=== PATIENT | male | born 1990 | race African-American/Black ===

== ENCOUNTER 2019-01-06 00:27 | Emergency (ER) | payer OTHER ==
[~2019-01-06] VITALS: Ht 165.1 cm; Wt 90.7 kg
[2019-01-06] MEDS ORDERED: NOHOMEMEDICATIONS (00:34)
[2019-01-06 01:14] LABS: ABSOLUTE NEUTROPHILS 5.7 thou/uL (1.4-8.2); BASOPHILS 0.3 % (0.0-2.0); EOSINOPHILS 1.7 % (0.0-3.0); HEMATOCRIT 42.8 % (42.0-52.0); HEMOGLOBIN 14.3 gm/dL (14.0-18.0); LYMPHOCYTES 39.2 % (24.0-44.0); MCH 31.2 pg (26.0-34.0); MCHC 33.3 g/dL (28.0-37.0); MCV 93.7 fL (80.0-100.0); MONOCYTES 6.1 % (1.0-8.0); PLATELET COUNT 272 thou/uL (150-400); POLYS 52.7 % (36.0-66.0); RBC 4.57 mil/uL (4.50-6.00); RDW 13.6 % (10.5-14.5); WBC 10.8 thou/uL (4.0-11.0)
[2019-01-06 01:44] LABS: ANION GAP 9 mmol/L (7-16); BUN 9 mg/dL (7-18); CHLORIDE 103 mmol/L (98-107); CO2 25 mmol/L (21-32); CREATININE 0.9 mg/dL (0.7-1.3); GLUCOSE 96 mg/dL (74-106); SODIUM 137 mmol/L (136-145)
[2019-01-06 01:52] LABS: TROPONIN-I <0.06 ng/mL (<0.06)
[2019-01-06] MEDS ORDERED: PROTONIX40 MG PO (02:15)
[2019-01-06] MEDS ORDERED: HYDROXYZINE HCL25 M2 PO (02:15)
[2019-01-06 02:27] LABS: CALCIUM 8.6 mg/dL (8.5-10.1)
[2019-01-06 02:53] VITALS: BP 124/77
--- NOTE | 2019-01-06 07:41 | EKG ---
[place] [id number] [facility] [place] [address] ELECTROCARDIOGRAM REPORT Name: CLOVIS AGGARWAL Room #: [facility]ENTERBrittany[facility] [id number] Admission: 01/06/19 Attend Phys: Discharge: 01/06/19 Date of : 86 Report #: [id number] THIS REPORT FOR: //name// [facility] ED Test Date: 2019-01-06 Test Time: 00:38:45 Pat Name: CLOVIS AGGARWAL Department: Room: Gender: Toter: SANDY : 1990 Requested By: Charli Santacruz Order Number: [id number] MD: Jonah Waddell Measurements Intervals Wiggins Rate: 78 P: 37 KS: 130 QRS: 10 QRSD: 91 T: -16 QT: 355 QTc: 405 Interpretive Statements Sinus rhythm Borderline T abnormalities, inferior leads No previous ECG available for comparison Electronically Signed On 01-06-2019 7:41:26 CDT by Jonah Waddell [email or web address] <ELECTRONICALLY SIGNED> By: Jonah Waddell MD, [facility] 01/06/19 0741 0038 0038 Jonah Waddell MD, FACC /EPI
== END 2019-01-06 02:54 | disposition home or self-care (01) ==
LOC: ER 00:27
PROVIDERS: Emergency Medicine
DX: R07.9 Chest pain, unspecified (principal); E78.00 Pure hypercholesterolemia, unspecified; F17.210 Nicotine dependence, cigarettes, uncomplicated